=== PATIENT | female | born 1990 ===

== ENCOUNTER → 2024-05-13 10:29 | Outpatient (REF) | payer BC, SELFPAY | LOC: RAD 10:29 | PROVIDERS: ATTENDING PHYSICIAN Obstetrics & Gynecology; FAMILY PHYSICIAN Family Medicine | DX: O20.0 Threatened abortion (principal) | CPT/HCPCS: 36415; 76801; 76817; 84702 ==

== ENCOUNTER 2025-02-02 04:50 | Emergency (ER) | payer BC, SELFPAY ==
[2025-02-02 04:51] VITALS: BP 120/48
--- NOTE | 2025-02-02 05:42 | ED.GENMED ---
History of Present Illness
General
Chief Complaint: Problems
Source: patient
Exam Limitations: none
Time Seen by Provider: 02/02/25 05:15
Nursing documentation reviewed up to this point in time: agreed with
History of Present Illness
History of Present Illness:
This is a 34 -year-old female who presents to the ER today with concerns of vaginal bleeding. Patient's last period was was December 24. Patient thought she was having her period two weeks ago but then the bleeding persisted beyond one week. She
contacted her CUSTODIAL OPERATIONS MANAGER who advised her to take a home test which was positive. ent 's community relations manager ordered bloodwork. Her beta hCG was around 0 which recently andrew to 460 days ago. She has not physically been seen by her CUSTODIAL OPERATIONS MANAGER yet at
[facility], only gynecology . The patient reports that she is currently Being treated for a UTI anabiotic's were started ed by urgent care, she is unsure of the anabiotic name. patient reports public pain during last night and has
been worsening. Her urinary symptoms have improved. The pain is in the left t lower quadrant. She denies any fevers or chills. She denies any flank pain. She reports that she does not use more than one pad or tampon per hour. She needs a dizziness.
She denies any sinkable episodes. She denies any passage of Clots lots notes at times the blood appears thicker. The patient also mentions that her breasts have been painful and swollen.
Review of Systems
Review of Systems
All Other Systems: ROS reviewed and negative except as documented in HPI and ROS
Phy Exam
General Physical Exam
General Presentation: well appearing and no apparent distress
General age: appears stated age
General Skin: warm and dry
General Habitus: normal
General Mental: alert
General Hydration: appears well hydrated
ENT Exam
ENT Exam: EOMI
Cardiovascular Exam
Cardiovascular Exam: regular rate/rhythm and no edema
Pulmonary Exam
Pulmonary Exam: lungs clear and no respiratory distress
Gastrointestinal Exam
Gastrointestinal Exam: non tender, soft, no pulsatile mass and non distended
Genitourinary Exam Female
Exam Female: adnexal tenderness
Neurological Exam
Neurological Exam: alert and oriented x3
Skin Exam
Skin Exam: normal color, warm/dry and no rash
Psychiatric Exam
Psychiatric Exam: normal mood/affect
Course
Orders/Labs/Results
Orders:
Orders
02/02/25 05:04
US W Transvaginal Urgent
Reason For Exam: vag bleeding, L pelvic pain
02/02/25 05:19
Blood Group&Type Urgent
Beta HCG Quantitative Urgent
Is this a screen?: No
02/02/25 05:41
Complete Blood Count/With Diff Urgent
Comprehensive Metabolic Panel Urgent
Urinalysis Reflex To Culture Urgent
Date Specimen was Collected: 02/02/25
Time Specimen was Collected: 05:40
Urine Microscopic Reflex Cult Urgent
Urine Culture Urgent
RUPERTO Source: U
Specimen Description:
Date Specimen was Collected: 02/02/25
Time Specimen was Collected: 05:40
02/02/25 06:18
Type+Screen Urgent
Abnormal Lab Results
02/02/25
05:41
Absolute Lymphs (auto) 1.1 L 10^3/uL
(1.2-3.4)
Chloride 108 H mmol/L
(98-107)
Ur Occult Blood Reflex 4+ A
(Negative)
Leukocyte Esterase Rfl 2+ A
(Negative)
Urine Bacteria (Reflex) Moderate A
(Negative)
Urine Albumin (Reflex) 1+ A
(Neg - Trace)
02/02/25 05:41
02/02/25 05:41
Vital Signs
Initial and Last Documented VS:
Initial Vital Signs
Temp Pulse Resp BP Pulse Ox
97 F 64 18 120/48 98
02/02/25 04:51 02/02/25 04:51 02/02/25 04:51 02/02/25 04:51 02/02/25 04:51
Last Documented Vital Signs
Temp Pulse Resp BP Pulse Ox
97 F 64 18 120/48 98
02/02/25 04:51 02/02/25 04:51 02/02/25 04:51 02/02/25 04:51 02/02/25 05:42
Information
Weeks gestation: N/A
Location: N/A
MDM/Problems Addressed
Differential Diagnosis Includes:
ddx include ectopic , threatened , subchorionic hemorrhage, menstruation
MDM/Problems Addressed:
34-year-old female presents to emergency department with concerns of bleeding in first trimester of . She had blood work done but no knowledge of confirmed IUP. and CMP unremarkable. Your analysis sis shows Luke's and bacteria,
patient is on anabiotic with improvement of symptoms. Ultrasound shows possible of unknown location as there is a heterogenous structure in the right adnexa. However, patient's pain is not on this side and the structure could represent
focal loop of bowel. Considering patient's pain is on the left side and her beta hcg is trending down currently at 262 Suspect early loss rather than ectopic . Case reviewed with ED attending. Information sent to patients OBgyn
to facilitate close follow up. Dr. Gunter aware of case. Patient instructed to return for new or worsening symptoms. Patient is positive so o patient does not need rhogam. Patient stable for discharge
*Pulse Oximetry
SaO2: 98
Oxygen Mode of Delivery: Room air
Patient hypoxic: no
*Critical Care Note
Total Time (30-74mins, 75-104mins- exclusive of procedures): Not Applicable
ED Attending Note
-
Portions of this chart may have been created with voice recognition software.� Occasional wrong word or��sound alike� substitutions may have occurred due to the inherent limitations of voice recognition software.
Discharge Plan
Departure
Patient Disposition: Home (Routine Discharge)
Date of Disposition: 02/02/25
Time of Disposition: 07:19
Patient with high blood pressure during this ER visit?: No
Condition: Good
Discharge Problem:
Vaginal bleeding in
Instructions: Miscarriage (DC), Bleeding in early
Referrals:
Joe Reyes DO [Family Provider, Family Practice]
Fawn Gunter MD [Active, Gynecology] - Call in 1-3 days for appt
Activity Restrictions/Additional Instructions:
Please finish antibiotic for UTI.
You will need repeated HCGs.
PLEASE RETURN TO THE ER SHOULD YOU DEVELOP ACUTE WORSENING OF YOUR BLEEDING, DIZZINESS, LOSS OF CONSCIOUSNESS, WORSENING PAIN, FLANK PAIN, FEVERS OR CHILLS, ANY OTHER SIGNS OR SYMPTOMS CONCERNING TO YOU.
Interventions
Interventions:
*Risk Screen - Suicide Last Done: 02/02/25 04:51
*General Assessment Last Done: 02/02/25 05:15
*Neglect/Abuse Screening Last Done: 02/02/25 04:51
*Nursing Disposition Last Done: 02/02/25 08:01
ED-Female Genitourinary Assessment Last Done: 02/02/25 05:15
Discharge Date and Time
Discharge Date/Time: 02/02/25 08:01
Print Language: INDIAN
[2025-02-02 05:54] LABS: Hematocrit 37.2 % (37.0-47.0); Hemoglobin 12.7 g/dL (12.0-16.0); Mean Corp Hgb Conc. 34.1 g/dL (33.0-37.0); Mean Corpuscular Volume 85.9 fL (81.0-99.0); Nucleated Red Blood Cells % 0 %; Platelet Count 192 10^3/uL (130-400); Red Cell Dist. Width 12.2 % (11.5-14.5); Urine Character Clear (Clear)
[2025-02-02 05:59] LABS: Urine Red Blood Cell 0-2 /HPF (0-2); Urine Squamous Cell 16-20 /LPF (Few)
[2025-02-02 06:08] LABS: ALT (SGPT) 13 U/L (0-35); AST (SGOT) 18 U/L (14-36); Albumin 4.0 g/dl (3.5-5.0); Alkaline Phosphatase 44 U/L (38-126); Blood Urea Nitrogen 11 mg/dl (7-17); Calcium 9.4 mg/dl (8.4-10.2); Carbon Dioxide 24 mmol/L (22-30); Chloride 108 mmol/L (98-107); Glucose 92 mg/dl (70-99); Potassium 3.9 mmol/L (3.5-5.1); Sodium 136 mmol/L (135-145); Total Protein 6.5 g/dl (6.3-8.2); eGFR > 60.00
[2025-02-02 06:21] LABS: Beta HCG Quantitative 262.43 mIU/ml
== END 2025-02-02 08:01 | disposition home or self-care (01) ==
LOC: EMR 04:50
PROVIDERS: Physician Assistant; EMERGENCY PHYSICIAN Emergency Medicine; FAMILY PHYSICIAN Family Medicine
DX: O46.91 Antepartum hemorrhage, unspecified, first trimester (principal); Z3A.00 Weeks of gestation of pregnancy not specified
CPT/HCPCS: 99284; 76801; 76817; 80053; 81003; 81015; 84702; 85025; 86850; 86900; 86901; 87086

== ENCOUNTER 2025-02-04 15:37 | Emergency (ER) | payer BC, SELFPAY ==
[2025-02-04 15:43] VITALS: BP 107/62
[2025-02-04 16:12] LABS: Hematocrit 38.2 % (37.0-47.0); Hemoglobin 12.7 g/dL (12.0-16.0); Mean Corp Hgb Conc. 33.2 g/dL (33.0-37.0); Mean Corpuscular Volume 85.1 fL (81.0-99.0); Nucleated Red Blood Cells % 0 %; Platelet Count 224 10^3/uL (130-400); Red Cell Dist. Width 12.1 % (11.5-14.5)
[2025-02-04 16:26] LABS: HCG, Serum Qualitative Screen Positive
[2025-02-04 16:30] LABS: ALT (SGPT) 15 U/L (0-35); AST (SGOT) 23 U/L (14-36); Albumin 4.5 g/dl (3.5-5.0); Alkaline Phosphatase 45 U/L (38-126); Blood Urea Nitrogen 12 mg/dl (7-17); Calcium 9.9 mg/dl (8.4-10.2); Carbon Dioxide 24 mmol/L (22-30); Chloride 103 mmol/L (98-107); Glucose 93 mg/dl (70-99); Potassium 4.0 mmol/L (3.5-5.1); Sodium 135 mmol/L (135-145); Total Protein 7.0 g/dl (6.3-8.2); eGFR > 60.00
[2025-02-04 16:41] LABS: Beta HCG Quantitative 239.76 mIU/ml
--- NOTE | 2025-02-04 17:58 | ED.GENMED ---
History of Present Illness
General
Chief Complaint: Problems
Source: patient
Exam Limitations: none
Time Seen by Provider: 02/04/25 17:47
Nursing documentation reviewed up to this point in time: agreed with
History of Present Illness
History of Present Illness:
Patient sent to ED by Dr. Sanches for possible ectopic . LMP 12/24. 2 weeks later she had vaginal bleeding which she thought was her period. When bleeding lasted longer than 1 week she was advised by her YARD INSPECTOR to take a preg test which was
positive. SHe was seen in ED on 02/02 with left sided pelvic pain. At that time she was being treated for UTI and was not sure if this was the cause of her pain. US at that visit revealed heterogeneous echogenic structure in the right adnexa - loop
of bowel vs ectopic. It was felt at that time ectopic was unlikely as her pain was on the left. OB was consulted and [facility] was discharged home with close OB follow up. Since that visit her beta HCG has not changed. SHe was sent back to ED tonight
for repeat labs and US. she denies any further vaginal bleeding. reports left sided 'fullness' but no pain.
Past History
Past History
ED Past Medical History: None
Review of Systems
Review of Systems
Allergies reviewed?: Yes
All Other Systems: ROS reviewed and negative except as documented in HPI and ROS
Constitutional: Reports no symptoms
EENT: Reports no symptoms
Respiratory: Reports no symptoms
Cardiac: Reports no symptoms
ABD/GI: Reports other (LLQ 'fullness')
: Reports no symptoms
Musculoskeletal: Reports no symptoms
Skin: Reports no symptoms
Neurological: Reports no symptoms
Psychiatric: Reports no symptoms
Phy Exam
General Physical Exam
General Presentation: well appearing and no apparent distress
General age: appears stated age
General Skin: warm and dry
General Habitus: normal
General Mental: appears intoxicated
Pulmonary Exam
Pulmonary Exam: no respiratory distress and chest non tender
Gastrointestinal Exam
Gastrointestinal Exam: non tender, soft, no organomegaly, no pulsatile mass, non distended and other
Musculoskeletal Exam
Musculoskeletal Exam: full ROM
Skin Exam
Skin Exam: normal color, warm/dry and no rash
Psychiatric Exam
Psychiatric Exam: normal mood/affect
Course
Orders/Labs/Results
Orders:
Orders
02/04/25 15:46
US W Transvaginal Urgent
Reason For Exam: r/o ectopic, SPOTTING , NO CHANGE IN HCG
02/04/25 15:50
Beta HCG Quantitative Urgent
Is this a screen?: No
CMP [Comprehensive Metabolic Panel] Urgent
Complete Blood Count/With Diff Urgent
HCG, Serum Qualitative Screen Urgent
Comment: ADD ON
02/04/25 19:01
Consult MANAGER MULTIMEDIA [MANAGER MULTIMEDIA CONSULT] Urgent
Consulting Provider: Jagjit Alvarado
Was physician already notified: Yes
02/04/25 19:23
Methotrexate Sodium/Pf [Methotrexate] 95 mg Intramuscular Injection 0 ml IM ONCE
Abnormal Lab Results
02/04/25
15:50
Lymphocytes % 18.6 L %
(20.5-51.1)
02/04/25 15:50
02/04/25 15:50
Vital Signs
Initial and Last Documented VS:
Initial Vital Signs
Temp Pulse Resp BP Pulse Ox
98.9 F 77 18 107/62 98
02/04/25 15:43 02/04/25 15:43 02/04/25 15:43 02/04/25 15:43 02/04/25 15:43
Last Documented Vital Signs
Temp Pulse Resp BP Pulse Ox
98.9 F 66 18 111/60 98
02/04/25 15:43 02/04/25 18:42 02/04/25 18:42 02/04/25 18:00 02/04/25 18:30
Information
Weeks gestation: N/A
Location: N/A
*Radiology
Radiology exam reviewed: radiology read reviewed
*Pulse Oximetry
SaO2: 98
Oxygen Mode of Delivery: Room air
Patient hypoxic: no
*Critical Care Note
Total Time (30-74mins, 75-104mins- exclusive of procedures): Not Applicable
Update Note
Update Note:
Patient sent to ED by Dr. Sanches for possible ectopic . HCG today 239.76. US again does not identify IUP and again small isoechoic mass noted on right adenxa, stable for prior US. Dr. Alvarado notified and evaluated patient in ED. It
was decided by patient and Dr. Alvarado to proceed with methotrexate IM. Dose ordered and administered n ED. WIll discharge home and she will follow closely with OB. Given rx for repeat HCG levels by Dr. Alvarado.
ED Attending Note
-
Portions of this chart may have been created with voice recognition software.� Occasional wrong word or��sound alike� substitutions may have occurred due to the inherent limitations of voice recognition software.
Discharge Plan
Departure
Patient Disposition: Home (Routine Discharge)
Date of Disposition: 02/04/25
Time of Disposition: 19:24
Patient with high blood pressure during this ER visit?: No
Condition: Good
Covid-19: Not Applicable
Discharge Problem:
Ectopic
Instructions: Methotrexate, Ectopic - ED (DC)
Referrals:
Jagjit Alvarado MD [Active, Gynecology] - Keep scheduled appt
Joe Reyes DO [Family Provider, Family Practice]
Activity Restrictions/Additional Instructions:
Follow up with Dr Alvarado as scheduled. Please follow up with lab for your HCG rechecks as requested by Dr. Alvarado.
Interventions
Interventions:
*Risk Screen - Suicide Last Done: 02/04/25 15:43
*General Assessment Last Done: 02/04/25 15:43
*Neglect/Abuse Screening Last Done: 02/04/25 15:43
*ED- Fall Risk Assessment Last Done: 02/04/25 15:43
*ED COVID-19 Vaccine History Last Done: 02/04/25 15:43
ED-Female Genitourinary Assessment Last Done: 02/04/25 18:01
Discharge Date and Time
Print Language: NICARAGUAN
[2025-02-04 18:00] VITALS: BP 111/60
--- NOTE | 2025-02-04 19:18 | CON.MD ---
Consultation - Medical
-
Full consult dictated
A/P of unknown location, likely ectopic-Pt presented with options for laparoscopy, but given lack of U/S findings, not likely to be helpful, in addition to the risks of surgery. MTX offered, pt agrees. Reviewed risks and side effects, pt
to return for HCG in 4 days and then every Sunday until HCG resolves. Importance stressed. MTX info sheet given. ED staff to order and admin MTX. Pelvic rest until resolves. RTO in one month for f/u
Consultation
-
Date/Time Consultation Requested: 02/04/251829
Date/Time Consultation Performed: 02/04/251914
Requesting Provider: Dr laurence Carreon
Performing Provider: Dr enrico Alvarado
Reason for Consultation: ectopic
[2025-02-04 19:19] VITALS: BMI 27.4
[2025-02-04 20:27] VITALS: BP 108/54
[2025-02-04] MEDS: METHOTREXATE 1.9 MG IM ×2 (20:33)
== END 2025-02-04 20:44 | disposition home or self-care (01) ==
LOC: EMR 15:37
PROVIDERS: Student in an Organized Health Care Education/Training Program; CONSULT PHYSICIAN Obstetrics & Gynecology; EMERGENCY PHYSICIAN Emergency Medicine; FAMILY PHYSICIAN Family Medicine; REFERRING PHYSICIAN Obstetrics & Gynecology
DX: O00.90 Unspecified ectopic pregnancy without intrauterine pregnancy (principal); N83.292 Other ovarian cyst, left side
CPT/HCPCS: 99284; 96372; 36415; 76801; 76817; 80053; 84702; 84703; 85025; J9260

== ENCOUNTER → 2025-02-11 14:56 | Outpatient (REF) | payer BC, SELFPAY ==
[2025-02-11 16:11] LABS: Beta HCG Quantitative 17.02 mIU/ml
== END ==
LOC: REG 14:56
PROVIDERS: ATTENDING PHYSICIAN Obstetrics & Gynecology; FAMILY PHYSICIAN Family Medicine
DX: O00.90 Unspecified ectopic pregnancy without intrauterine pregnancy (principal)
CPT/HCPCS: 36415; 84702

== ENCOUNTER → 2025-02-18 16:33 | Outpatient (REF) | payer BC, SELFPAY ==
[2025-02-18 17:24] LABS: Beta HCG Quantitative < 2.39 mIU/ml
== END ==
LOC: REG 16:33
PROVIDERS: ATTENDING PHYSICIAN Obstetrics & Gynecology; FAMILY PHYSICIAN Family Medicine
DX: O00.90 Unspecified ectopic pregnancy without intrauterine pregnancy (principal)
CPT/HCPCS: 36415; 84702